=== PATIENT | female | born 1945 | race Caucasian/White ===

== ENCOUNTER 2019-06-08 06:38 | Day surgery (SDC) | payer MEDICAID, MEDICARE ==
[~2019-06-08 06:38] MED LIST: ALPR0.5T6 PO; AMLO10TA8 PO; EPHE1TAB PO; INDA2.5T PO; LABE300T2 PO; MELO7.5T29 PO; NAPR220T70 PO; PRAV20TA2 PO; SULF1TAB23 PO; TRAZ-118 PO; VENTOLIN HFA18 GM INH; ceFAZolin SODIUM IV Push 1 GM VIAL. IVP ONE
[2019-06-08] MEDS ORDERED: fentaNYL PF VIAL 100 MCG/2 ML VIAL IV PRN ×2 (07:00)
[2019-06-08] MEDS ORDERED: IV RINGERS,LACTATED 1000ML 1,000 ML IV SCH (07:00)
[2019-06-08] MEDS ORDERED: HYDROmorphone 2 MG/ML VIAL IV PRN (07:00)
[2019-06-08] MEDS ORDERED: MORPHINE SULFATE 2 MG/ML VIAL. IV PRN (07:00)
[2019-06-08] MEDS ORDERED: ONDANSETRON PF 4 MG/2 ML VIAL. IV PRN (07:00)
[2019-06-08] MEDS ORDERED: PROCHLORPERAZINE 10 MG/2 ML VIAL. IV PRN (07:00)
[2019-06-08] MEDS ORDERED: LIDOCAINE 1% PF 2 ML VIAL. ID PRN (07:00)
[2019-06-08] MEDS ORDERED: SILVER NITRATE STICK TP ONE ×2 (07:18→07:22)
[2019-06-08] MEDS ORDERED: LIDOCAINE 2% PF 5 ML VIAL. ONE (07:25)
[2019-06-08] MEDS ORDERED: ONDANSETRON PF 4 MG/2 ML VIAL. ONE (07:25)
[2019-06-08] MEDS ORDERED: fentaNYL PF VIAL 100 MCG/2 ML VIAL ONE (07:25)
[2019-06-08] MEDS ORDERED: DEXAMETHASONE SOD PHOS 4 MG/ML VIAL ONE (07:25)
[2019-06-08] MEDS ORDERED: PROPOFOL 20 ML IV ONE (07:25)
[2019-06-08] MEDS ORDERED: LIDOCAINE 1%/EPI 1:100,000 20 ML VIAL. ONE (08:13)
[2019-06-08] MEDS ORDERED: SEVOFLURANE 31 TO 60 MINUTES. IH ONE (08:27)
--- NOTE | 2019-06-08 08:44 | PDOC ---
BRIEF OPERATIVE NOTE Date: Jun 08, 2019 Pre-Op Diagnosis Bartholin Duct Cyst Post-Op Diagnosis Same Procedure Performed Marsupialization Surgeon Dr. Osman Anesthesia Type: General Blood Loss 5 ml Specimens Obtained none Findings Bartholin duct cyst, Left; 4 cm size Complications none Operative Note see dictation TOBIAS OSMAN Jr, MD Jun 08, 2019 08:44
--- NOTE | 2019-06-08 08:46 | DISCH ---
DISCHARGE INSTRUCTIONS Condition on Discharge Condition on Discharge: Stable Activity After Discharge Activity Instructions for Disc: Activity as tolerated Lifting Instructions after Dis: No heavy lifting Driving Instructions after Dis: Do not drive today Diet after Discharge Diet after Discharge: Regular Contacting the DRMargy after DC Call your doctor for: Concerns you may have Follow-Up Follow up with: Dr. Arellano in 1 week. Change bandage area twice daily. No baths for 2 wks TOBIAS ARELLANO Jr, MD Jun 08, 2019 08:46
--- NOTE | 2019-06-08 08:57 | OP ---
DATE OF SURGERY: PREOPERATIVE DIAGNOSIS: Bartholin duct cyst on the left side. POSTOPERATIVE DIAGNOSIS: Bartholin duct cyst on the left side. PROCEDURE: Marsupialization. SURGEON: Reji Osman MD ANESTHESIA: GETA. ESTIMATED BLOOD LOSS: 5 mL. COMPLICATIONS: None. FINDINGS: Bartholin duct cyst 4 cm size on the left side SUMMARY: A 74-year-old female who had a Bartholin duct cyst, required surgical management in the form of marsupialization. The patient was counseled on risks, benefits and expectations and voiced clear understanding to proceed. DESCRIPTION OF PROCEDURE: The patient was taken to surgery suite and placed in dorsal lithotomy position where she was prepped with Betadine solution and draped in sterile fashion. After adequate anesthesia, the Bartholin duct cyst was isolated on the left side in which 1% lidocaine with epinephrine was injected just below the skin. A vertical skin incision was made with a scalpel. The vaginal mucosa was then dissected away from the Bartholin duct cyst wall. We then entered Bartholin duct cyst wall with the scalpel in which purulent material was extruding and expressed all the way out and cleaned out with Irrisept. The Bartholin duct cyst wall was then sutured to the side of the labia in an interrupted fashion using 3-0 chromic suture. The area was all hemostatic. The patient tolerated the procedure well. Vaseline gauze was placed over the area to be able to prevent any irritation with clothing. She was taken to the recovery room in stable condition. Sponge and needle count correct x 3. REJI OSMAN MD DR: [email or web address]/[email or web address] JOB#: [id number] / [id number]
[2019-06-08] MEDS ORDERED: ACETAMINOPHEN/CODEINE 300/30MG TABLET. PO ONE (09:15)
[2019-06-08] MEDS ORDERED: ACET-704 PO (09:24)
[2019-06-08 10:00] VITALS: BP 169/82
[2019-06-08 10:28] LABS: BASO # 0.1 x10^3/uL (0.0-0.2); BASO % 1 % (0-3); EOS # 0.3 x10^3/uL (0.0-0.7); EOS % 5 % (0-3); HEMATOCRIT 39.3 % (36.0-47.0); HEMOGLOBIN 13.2 g/dL (12.0-15.5); LYMPH % 52 % (24-48); MEAN CORPUSCULAR HEMOGLOBIN 29 pg (25-35); MEAN CORPUSCULAR HGB CONC 34 g/dL (31-37); MEAN CORPUSCULAR VOLUME 86 fL (79-100); MONO # 0.6 x10^3/uL (0.0-1.1); MONO % 10 % (0-9); NEUT # 1.9 x10^3/uL (1.8-7.7); NEUT % 33 % (31-73); PLATELET COUNT 237 x10^3/uL (140-400); RED BLOOD COUNT 4.56 x10^6/uL (3.50-5.40); RED CELL DISTRIBUTION WIDTH 14.3 % (11.5-14.5); WHITE BLOOD COUNT 5.9 x10^3/uL (4.0-11.0)
== END 2019-06-08 10:44 | disposition home or self-care (01) ==
LOC: SURG 06:38
PROVIDERS: ATTEND Obstetrics & Gynecology
DX: N75.0 Cyst of Bartholin's gland (principal); Z88.0 Allergy status to penicillin; Z88.8 Allergy status to other drugs, medicaments and biological substances; Z79.899 Other long term (current) drug therapy
CPT/HCPCS: 36415; 85025; J0690; J1100; J2001; J2405; J2704; J3010; J3490